=== PATIENT | female | born 1970 | race Caucasian/White ===

== ENCOUNTER 2017-11-20 09:06 | Emergency (ER) | payer MEDICAID, OTHER ==
[~2017-11-20] VITALS: Ht 167.6 cm; Wt 69.1 kg
[2017-11-20] MEDS ORDERED: normal saline 1000ML IV soln IVB ONE (09:15)
[2017-11-20 09:39] LABS: BASOPHILS # (AUTO) 0.1 X10'3 (0-0.2); BASOPHILS % (AUTO) 1.1 % (0-1); EOSINOPHILS # (AUTO) 0.1 X10'3 (0-0.9); EOSINOPHILS % (AUTO) 1.8 % (0-6); HEMATOCRIT 48.6 % (35.0-45.0); HEMOGLOBIN 16.9 g/dl (12.0-16.0); LYMPHOCYTES # (AUTO) 1.8 X10'3 (1.1-4.8); LYMPHOCYTES % (AUTO) 26.1 % (21-51); MEAN CORPUSCULAR HEMOGLOBIN 33.7 PG (27.0-31.0); MEAN CORPUSCULAR HGB CONC 34.7 % (33.0-36.5); MEAN CORPUSCULAR VOLUME 97.3 FL (78-98); MEAN PLATELET VOLUME 7.7 FL (7.4-10.4); MONOCYTES # (AUTO) 0.4 X10'3 (0-0.9); MONOCYTES % (AUTO) 5.7 % (2-12); NEUTROPHILS # (AUTO) 4.5 X10'3 (1.8-7.7); NEUTROPHILS % (AUTO) 65.3 % (42-75); PLATELET COUNT 312 X10'3 (140-440); RED CELL DISTRIBUTION WIDTH 12.9 % (11.5-14.5); WHITE BLOOD COUNT 6.9 X10'3 (4.5-11.0)
[2017-11-20 09:42] LABS: URINE HCG NEGATIVE (NEG)
[2017-11-20 09:43] LABS: CLARITY,URINE CLEAR (Clear); COLOR,URINE YELLOW (Yellow); GLUCOSE, URINE NEGATIVE (Neg); KETONES,URINE NEGATIVE (Neg); LEUKOCYTE ESTERASE ,URINE NEGATIVE (Neg); NITRITES, URINE NEGATIVE (Neg); OCCULT BLOOD,URINE TRACE-INTACT (Neg); PH,URINE 6.5 (4.8-8.0); PROTEIN,URINE NEGATIVE (Neg); UA COLLECTION TYPE CLN CATCH MIDSTREAM; UROBILINOGEN,URINE 0.2 E.U/dL (0.2-1.0)
[2017-11-20 09:48] LABS: BACTERIA,URINE FEW /HPF (Neg); MUCUS STRANDS FEW /LPF (Neg); SQUAMOUS EPITHELIAL CELL,UR MODERATE /LPF (FEW); TRANSITIONAL EPI CELLS,URINE FEW /HPF; WBC,URINE 0-4 /HPF (0-4)
[2017-11-20 09:54] LABS: ALANINE AMINOTRANSFERASE 43 U/L (12-78); ALBUMIN 4.2 G/DL (3.4-5.0); ALBUMIN/GLOBULIN RATIO 1.2 (1.1-1.5); ALKALINE PHOSPHATASE 41 IU/L (46-116); ANION GAP 9 (8-16); ASPARTATE AMINO TRANSFERASE 22 U/L (10-37); BILIRUBIN,TOTAL 1.4 MG/DL (0.1-1.0); BLOOD UREA NITROGEN 17 MG/DL (7-18); CALCIUM 9.2 MG/DL (8.5-10.1); CHLORIDE 104 MMOL/L (99-107); CREATININE 1.13 MG/DL (0.40-0.90); GLUCOSE 105 MG/DL (70-104); POTASSIUM 4.2 MMOL/L (3.5-5.1); SODIUM 140 MMOL/L (135-145); TOTAL CARBON DIOXIDE 27.5 MMOL/L (24-32); TOTAL PROTEIN 7.8 G/DL (6.4-8.2); eGFR 52 ML/MIN
[2017-11-20] MEDS ORDERED: FLO0.4C PO (10:50)
[2017-11-20 11:25] VITALS: BP 120/67
== END 2017-11-20 11:27 | disposition home or self-care (01) ==
LOC: ER 09:07
DX: R33.9 Retention of urine, unspecified (principal)
CPT/HCPCS: 36415; 71045; 74176; 80053; 81001; 81025; 83880; 84484; 85025; 93005; 99285; J7030

== ENCOUNTER 2018-10-01 11:36 | Emergency (ER) | payer BC, MEDICAID ==
[~2018-10-01] VITALS: Ht 170.2 cm; Wt 68.6 kg
[2018-10-01 13:13] LABS: CLARITY,URINE CLEAR (Clear); COLOR,URINE YELLOW (Yellow); GLUCOSE, URINE NEGATIVE (Neg); KETONES,URINE NEGATIVE (Neg); LEUKOCYTE ESTERASE ,URINE NEGATIVE (Neg); NITRITES, URINE NEGATIVE (Neg); OCCULT BLOOD,URINE MODERATE (Neg); PROTEIN,URINE NEGATIVE (Neg); UROBILINOGEN,URINE 0.2 E.U/dL (0.2-1.0)
[2018-10-01 13:19] LABS: UA COLLECTION TYPE CLN CATCH MIDSTREAM
[2018-10-01 13:21] LABS: SQUAMOUS EPITHELIAL CELL,UR FEW /LPF (FEW)
[2018-10-01 13:23] LABS: BACTERIA,URINE FEW /HPF (Neg); TRANSITIONAL EPI CELLS,URINE FEW /HPF; WBC,URINE 0-4 /HPF (0-4)
[2018-10-01] MEDS ORDERED: normal saline 1000ML IV soln IVB ONE (13:50)
[2018-10-01] MEDS ORDERED: CefTRIAXone 2gm/D5W 50ml 50 ML IV ONE (13:50)
[2018-10-01] MEDS ORDERED: ketorolac trometh. 30mg/ml inj. IV ONE (13:55)
[2018-10-01 14:20] LABS: BASOPHILS # (AUTO) 0.1 X10'3 (0-0.2); BASOPHILS % (AUTO) 0.8 % (0-1); EOSINOPHILS % (AUTO) 0.2 % (0-6); HEMATOCRIT 43.9 % (35.0-45.0); LYMPHOCYTES % (AUTO) 28.2 % (21-51); MEAN CORPUSCULAR HEMOGLOBIN 32.4 PG (27.0-31.0); MEAN CORPUSCULAR HGB CONC 34.2 g/dL (33.0-36.5); MEAN CORPUSCULAR VOLUME 94.8 FL (78-98); MEAN PLATELET VOLUME 7.6 FL (7.4-10.4); MONOCYTES # (AUTO) 0.4 X10'3 (0-0.9); MONOCYTES % (AUTO) 5.9 % (2-12); NEUTROPHILS # (AUTO) 4.6 X10'3 (1.8-7.7); NEUTROPHILS % (AUTO) 64.9 % (42-75); PLATELET COUNT 349 X10'3 (140-440); RED BLOOD COUNT 4.63 X10'6 (4.20-5.60); RED CELL DISTRIBUTION WIDTH 12.8 % (11.5-14.5); WHITE BLOOD COUNT 7.1 X10'3 (4.5-11.0)
[2018-10-01 14:31] LABS: ALANINE AMINOTRANSFERASE 42 U/L (12-78); ALBUMIN 3.7 G/DL (3.4-5.0); ALBUMIN/GLOBULIN RATIO 0.8 (1.1-1.5); ALKALINE PHOSPHATASE 42 IU/L (46-116); ANION GAP 7 (8-16); ASPARTATE AMINO TRANSFERASE 22 U/L (10-37); BILIRUBIN,TOTAL 0.4 MG/DL (0.1-1.0); BLOOD UREA NITROGEN 18 MG/DL (7-18); BUN/CREATININE RATIO 17.6 (6.6-38.0); CALCIUM 9.7 MG/DL (8.5-10.1); CHLORIDE 105 MMOL/L (99-107); CREATININE 1.02 MG/DL (0.40-0.90); GLUCOSE 98 MG/DL (70-104); POTASSIUM 3.9 MMOL/L (3.5-5.1); SODIUM 141 MMOL/L (135-145); TOTAL CARBON DIOXIDE 29.1 MMOL/L (24-32); TOTAL PROTEIN 8.1 G/DL (6.4-8.2); eGFR 58 ML/MIN
[2018-10-01 16:02] VITALS: BP 122/78
== END 2018-10-01 16:04 | disposition home or self-care (01) ==
LOC: ER 11:37
DX: R10.12 Left upper quadrant pain (principal); R42 Dizziness and giddiness; R50.9 Fever, unspecified; R41.0 Disorientation, unspecified; Z88.2 Allergy status to sulfonamides
CPT/HCPCS: 36415; 74176; 80053; 81001; 84145; 85025; 96365; 96366; 96375; 99284; J0696; J1885; J7030

== ENCOUNTER 2019-12-14 07:23 | Inpatient (IN) | payer BC ==
[~2019-12-14] VITALS: Ht 170.2 cm; Wt 59.1 kg
--- NOTE | 2019-12-14 08:06 | NUR ---
Pt to restroom unassisted for UA. Pt reports increased pain with movement.
[2019-12-14] MEDS ORDERED: morphine 4 MG/ML inj SYRINge IV PRN (08:10)
[2019-12-14] MEDS ORDERED: ketorolac tromethamine 15mg/ml inj. IV ONE (08:10)
[2019-12-14] MEDS ORDERED: normal saline 1000ML IV soln IVB ONE (08:10)
[2019-12-14] MEDS ORDERED: ondansetron/PF 4mg/2ml inj IV ONE (08:10)
[2019-12-14 08:13] LABS: BASOPHILS % (AUTO) 0.3 % (0-1); EOSINOPHILS % (AUTO) 0.3 % (0-6); HEMOGLOBIN 13.9 g/dl (12.0-16.0); LYMPHOCYTES # (AUTO) 1.1 X10'3 (1.1-4.8); MEAN CORPUSCULAR HGB CONC 33.9 g/dL (33.0-36.5); MEAN CORPUSCULAR VOLUME 97.2 FL (78-98); MEAN PLATELET VOLUME 8.2 FL (7.4-10.4); MONOCYTES # (AUTO) 0.6 X10'3 (0-0.9); MONOCYTES % (AUTO) 4.6 % (2-12); NEUTROPHILS # (AUTO) 11.8 X10'3 (1.8-7.7); NEUTROPHILS % (AUTO) 86.8 % (42-75); PLATELET COUNT 264 X10'3 (140-440); RED BLOOD COUNT 4.22 X10'6 (4.20-5.60); RED CELL DISTRIBUTION WIDTH 12.7 % (11.5-14.5); WHITE BLOOD COUNT 13.6 X10'3 (4.5-11.0)
[2019-12-14 08:15] LABS: ALANINE AMINOTRANSFERASE 30 U/L (12-78); ALBUMIN 3.4 G/DL (3.4-5.0); ALBUMIN/GLOBULIN RATIO 1.2 (1.1-1.5); ALKALINE PHOSPHATASE 39 IU/L (46-116); ANION GAP 9 (8-16); ASPARTATE AMINO TRANSFERASE 17 U/L (10-37); BILIRUBIN,TOTAL 1.3 MG/DL (0.1-1.0); BLOOD UREA NITROGEN 11 MG/DL (7-18); BUN/CREATININE RATIO 13.1 (6.6-38.0); CALCIUM 8.4 MG/DL (8.5-10.1); CHLORIDE 105 MMOL/L (99-107); CREATININE 0.84 MG/DL (0.40-0.90); GLUCOSE 126 MG/DL (70-104); POTASSIUM 3.8 MMOL/L (3.5-5.1); SODIUM 139 MMOL/L (135-145); TOTAL CARBON DIOXIDE 24.7 MMOL/L (24-32); TOTAL PROTEIN 6.3 G/DL (6.4-8.2); eGFR 72 ML/MIN
[2019-12-14 08:25] LABS: LIPASE 978 U/L (73-393)
[2019-12-14 08:31] LABS: URINE HCG NEGATIVE (NEG)
[2019-12-14 08:33] LABS: GLUCOSE, URINE NEGATIVE (Neg); KETONES,URINE 40 mg/dl (Neg); LEUKOCYTE ESTERASE ,URINE NEGATIVE (Neg); NITRITES, URINE NEGATIVE (Neg); OCCULT BLOOD,URINE SMALL (Neg); PROTEIN,URINE NEGATIVE (Neg); UROBILINOGEN,URINE 0.2 E.U/dL (0.2-1.0)
[2019-12-14 08:38] LABS: UA COLLECTION TYPE CLN CATCH MIDSTREAM
[2019-12-14 08:39] LABS: CLARITY,URINE SLIGHTLY CLOUDY (Clear); COLOR,URINE DARK YELLOW (Yellow)
[2019-12-14 08:40] LABS: BACTERIA,URINE FEW /HPF (Neg); HYALINE CASTS 0-3 /LPF (NEGATIVE); MUCUS STRANDS MANY /LPF (Neg); SQUAMOUS EPITHELIAL CELL,UR MANY /LPF (FEW); WBC,URINE 0-4 /HPF (0-4)
[2019-12-14] MEDS ORDERED: iohexol 300mg/ml 100ml inj. ONE (09:05)
--- NOTE | 2019-12-14 09:11 | NUR ---
Pt to CT. Reports some decrease in pain.
--- NOTE | 2019-12-14 09:34 | NUR ---
Pt back from CT. Tolerated well.
[2019-12-14] MEDS ORDERED: piperacillin/tazo 3.375gm/50ml 50 ML IV ONE (09:35)
[2019-12-14] MEDS ORDERED: normal saline 1000ML IV soln IV ONE (09:35)
[2019-12-14] MEDS ORDERED: magnesium Cl slow-release 64mg tablet PO PRN (10:45)
[2019-12-14] MEDS ORDERED: acetaminophen 325mg tablet PO PRN ×2 (10:45)
[2019-12-14] MEDS ORDERED: potassium Cl 20 mEq SR tablet PO PRN ×2 (10:45)
[2019-12-14] MEDS ORDERED: HYDROcodone/acetaminophen 5mg/325mg tablet PO PRN (10:45)
[2019-12-14] MEDS ORDERED: morphine 2 MG/ML inj. syringe IV PRN ×2 (10:45)
[2019-12-14] MEDS ORDERED: magnesium 2GM in 50ml NS 50 ML IV PRN (10:45)
[2019-12-14] MEDS ORDERED: bisacodyl 10mg suppository rectal RC PRN (10:45)
[2019-12-14] MEDS ORDERED: diphenhydrAMINE 50 mg/ml inj IV PRN (10:45)
[2019-12-14] MEDS ORDERED: potassium CL 10mEq/100ml bag 100 ML IV PRN (10:45)
[2019-12-14] MEDS ORDERED: magnesium hydroxide 30ml (MOM) UD suspension PO PRN (10:45)
[2019-12-14] MEDS ORDERED: mag hydrox/Alum hydrox/simeth 30ml oral suspension PO PRN (10:45)
[2019-12-14] MEDS ORDERED: magnesium 4gm in 100ml NS 100 ML IV PRN (10:45)
[2019-12-14] MEDS ORDERED: diphenhydrAMINE 25mg capsule PO PRN (10:45)
[2019-12-14] MEDS ORDERED: acetaminophen 650mg rectal suppository RC PRN (10:45)
[2019-12-14] MEDS ORDERED: HYDROcodone/acetaminophen 10/325mg tab PO PRN (10:45)
[2019-12-14] MEDS ORDERED: FLO0.4C PO (11:16)
[2019-12-14] MEDS ORDERED: ASCO-139 PO (11:16)
[2019-12-14 11:23] LABS: HEMOGLOBIN A1C 4.9 % (4.5-6.2)
--- NOTE | 2019-12-14 11:26 | NUR ---
Patient in room . I have received report from Dino RICHARDSON and had the opportunity to ask questions and assume patient care.
--- NOTE | 2019-12-14 11:40 | NUR ---
Patient arrived to the unit.
[2019-12-14 11:44] VITALS: BP 93/44
[2019-12-14] MEDS ORDERED: SERT50TA10 PO (11:46)
[2019-12-14] MEDS: dextrose 5%-normal saline 1,000 ML IV SCH (11:52)
[2019-12-14] MEDS: metoclopramide 5 mg/ml inj IV PRN (11:58)
--- NOTE | 2019-12-14 13:30 | NUR ---
Patient to MRI by Transport by .
--- NOTE | 2019-12-14 15:24 | NUR ---
PAGER ID: [phone] MESSAGE: [id number] Vitaly. MRCP completed. Patient requesting Toradol instead of MS for pain if possible. Mahi [id number]
[2019-12-14] MEDS: piperacillin/tazo 3.375gm/50ml 50 ML IV SCH (16:10)
[2019-12-14] MEDS: ketorolac trometh. 30mg/ml inj. IV PRN ×2 (16:48→23:09)
--- NOTE | 2019-12-14 16:57 | NUR ---
BM at home Addendum: 12/14/19 at 1658 by Mahi Booth RN Amended: Links added.
[2019-12-14] MEDS: ondansetron/PF 4mg/2ml inj IV PRN ×2 (17:05→23:16)
--- NOTE | 2019-12-14 18:12 | NUR ---
Problems reprioritized. Patient report given, questions answered & plan of care reviewed with Sushma RICHARDSON.
--- NOTE | 2019-12-14 18:24 | NUR ---
Patient in room [facility]. I have received report from EZEKIEL RICHARDSON and had the opportunity to ask questions and assume patient care. Addendum: 12/14/19 at 1824 by Sushma Trent RN Amended: Links added.
[2019-12-14 19:43] LABS: ETHANOL < 0.010 GM/DL (0.0-0.010)
[2019-12-14 20:00] VITALS: BP 104/56
[2019-12-14] MEDS: K and/or MAG REPLACEMENT MC SCH (20:00)
--- NOTE | 2019-12-14 20:00 | NUR ---
pt awake stated pain at a 5 and can handle that does not want morphine for this. likes the toradol. pt a/o pleasant and teaching regarding plan of care.
[2019-12-14] MEDS: lactobacillus rhamnosus 10,000 MMU CELLS/CAPSULE PO SCH (20:07)
[2019-12-14] MEDS: pantoprazole 40 MG vial IV SCH (20:08)
[2019-12-14] MEDS: heparin, porcine 5000 units/ml vial SQ SCH (20:08)
[2019-12-14 20:33] LABS: CLARITY,URINE CLEAR (Clear); COLOR,URINE YELLOW (Yellow); GLUCOSE, URINE NEGATIVE (Neg); KETONES,URINE 15 mg/dl (Neg); LEUKOCYTE ESTERASE ,URINE NEGATIVE (Neg); NITRITES, URINE NEGATIVE (Neg); OCCULT BLOOD,URINE SMALL (Neg); PH,URINE 5.5 (4.8-8.0); PROTEIN,URINE NEGATIVE (Neg); UROBILINOGEN,URINE 0.2 E.U/dL (0.2-1.0)
[2019-12-14 20:36] LABS: UA COLLECTION TYPE VOIDED
[2019-12-14 20:37] LABS: BACTERIA,URINE NONE SEEN /HPF (Neg); RBC,URINE 0-2 /HPF (0-2); SQUAMOUS EPITHELIAL CELL,UR FEW /LPF (FEW); WBC,URINE NONE SEEN /HPF (0-4)
[2019-12-14 20:46] LABS: URINE AMPHETAMINE SCREEN NEGATIVE (Neg); URINE BARBITUATE SCREEN NEGATIVE (Neg); URINE BENZODIAZEPINES SCREEN NEGATIVE (Neg); URINE CANNABINOID SCREEN NEGATIVE (Neg); URINE COCAINE SCREEN NEGATIVE (Neg); URINE METHADONE SCREEN NEGATIVE (Neg); URINE OPIATE SCREEN POSITIVE (Neg); URINE PHENCYCLIDINE SCREEN NEGATIVE (Neg)
--- NOTE | 2019-12-14 23:02 | NUR ---
resting eyes closed without changes at this time.
--- NOTE | 2019-12-14 23:17 | NUR ---
pt awoke with pain 01/07 and c/o nausea medicated with iv toradol & ZOFRAN FOR THIS.
[2019-12-15] VITALS: BP 118/63
--- NOTE | 2019-12-15 00:06 | NUR ---
resting eyes closed without changes.
[2019-12-15] MEDS: piperacillin/tazo 3.375gm/50ml 50 ML IV SCH ×3 (00:18→16:56)
[2019-12-15] MEDS: dextrose 5%-normal saline 1,000 ML IV SCH ×3 (00:19→17:52)
--- NOTE | 2019-12-15 02:00 | NUR ---
resting eyes closed appears comfortable.
--- NOTE | 2019-12-15 03:57 | NUR ---
pt up ambulating in the coulter had night sweats and hospital gown and pillow cases changed for her.
--- NOTE | 2019-12-15 05:06 | NUR ---
pt resting eyes closed without changes.
[2019-12-15 05:53] LABS: BASOPHILS # (AUTO) 0.1 X10'3 (0-0.2); BASOPHILS % (AUTO) 0.5 % (0-1); EOSINOPHILS # (AUTO) 0.1 X10'3 (0-0.9); EOSINOPHILS % (AUTO) 0.7 % (0-6); HEMATOCRIT 34.8 % (35.0-45.0); HEMOGLOBIN 11.8 g/dl (12.0-16.0); LYMPHOCYTES # (AUTO) 1.7 X10'3 (1.1-4.8); LYMPHOCYTES % (AUTO) 17.9 % (21-51); MEAN CORPUSCULAR HEMOGLOBIN 33.2 PG (27.0-31.0); MEAN CORPUSCULAR HGB CONC 33.9 g/dL (33.0-36.5); MEAN CORPUSCULAR VOLUME 97.9 FL (78-98); MEAN PLATELET VOLUME 8.7 FL (7.4-10.4); MONOCYTES # (AUTO) 0.6 X10'3 (0-0.9); MONOCYTES % (AUTO) 6.5 % (2-12); NEUTROPHILS # (AUTO) 7.2 X10'3 (1.8-7.7); NEUTROPHILS % (AUTO) 74.4 % (42-75); PLATELET COUNT 216 X10'3 (140-440); RED BLOOD COUNT 3.56 X10'6 (4.20-5.60); RED CELL DISTRIBUTION WIDTH 12.4 % (11.5-14.5); WHITE BLOOD COUNT 9.7 X10'3 (4.5-11.0)
[2019-12-15 06:05] LABS: ALANINE AMINOTRANSFERASE 20 U/L (12-78); ALBUMIN 2.6 G/DL (3.4-5.0); ALKALINE PHOSPHATASE 30 IU/L (46-116); ANION GAP 8 (8-16); ASPARTATE AMINO TRANSFERASE 16 U/L (10-37); BILIRUBIN,TOTAL 2.2 MG/DL (0.1-1.0); BLOOD UREA NITROGEN 6 MG/DL (7-18); BUN/CREATININE RATIO 7.1 (6.6-38.0); CALCIUM 7.5 MG/DL (8.5-10.1); CHLORIDE 109 MMOL/L (99-107); CHOL/HDL RATIO 1.5 (0.00-4.99); CHOLESTEROL 92 MG/DL (0-200); CREATININE 0.85 MG/DL (0.40-0.90); GLUCOSE 123 MG/DL (70-104); HDL CHOLESTEROL 61 MG/DL (35-60); LDL CHOLESTEROL 28 MG/DL (50-100); LIPASE 325 U/L (73-393); MAGNESIUM 1.5 MG/DL (1.5-2.4); PHOSPHORUS 2.3 MG/DL (2.3-4.5); POTASSIUM 3.2 MMOL/L (3.5-5.1); SODIUM 142 MMOL/L (135-145); TOTAL CARBON DIOXIDE 24.9 MMOL/L (24-32); TOTAL PROTEIN 5.3 G/DL (6.4-8.2); TRIGLYCERIDES 53 MG/DL (20-135); eGFR 71 ML/MIN
--- NOTE | 2019-12-15 06:20 | NUR ---
Problems reprioritized. Patient report given, questions answered & plan of care reviewed with Glenys Meier. Addendum: 12/15/19 at 0621 by Sushma Trent RN Amended: Links added.
--- NOTE | 2019-12-15 06:42 | NUR ---
Patient in room [facility]. I have received report from DEBRA Ordaz and had the opportunity to ask questions and assume patient care.
[2019-12-15 07:00] VITALS: BP 113/69
[2019-12-15] MEDS: ketorolac trometh. 30mg/ml inj. IV PRN ×3 (07:09→19:41)
[2019-12-15] MEDS: ondansetron/PF 4mg/2ml inj IV PRN (07:16)
[2019-12-15] MEDS: potassium CL 10mEq/100ml bag 100 ML IV PRN ×4 (07:17→13:32)
[2019-12-15] MEDS: pantoprazole 40 MG vial IV SCH (08:04)
[2019-12-15] MEDS: K and/or MAG REPLACEMENT MC SCH ×2 (08:15→19:42)
[2019-12-15] MEDS: lactobacillus rhamnosus 10,000 MMU CELLS/CAPSULE PO SCH ×2 (08:34→19:41)
[2019-12-15] MEDS: heparin, porcine 5000 units/ml vial SQ SCH ×2 (08:38→19:42)
[2019-12-15 11:00] VITALS: BP 106/66
--- NOTE | 2019-12-15 18:12 | NUR ---
Problems reprioritized. Patient report given, questions answered & plan of care reviewed with DEBRA Adkins.
--- NOTE | 2019-12-15 18:38 | NUR ---
Received report from primary care nurse Glenys RICHARDSON. Assumed care. Patient is awake and alert on room air in no apparent distress. Call light and items of frequent use within reach. Will continue to monitor for changes.
[2019-12-15 19:00] VITALS: BP 106/65
[2019-12-15] MEDS: diatr meglu/diatrizoate 30ml oral sol.-(3 dose) bottle PO SCH ×2 (20:48→22:14)
[2019-12-16] VITALS: BP 98/62
[2019-12-16] MEDS: piperacillin/tazo 3.375gm/50ml 50 ML IV SCH ×3 (00:27→15:26)
[2019-12-16] MEDS: ondansetron/PF 4mg/2ml inj IV PRN ×3 (01:25→15:23)
[2019-12-16] MEDS: ketorolac trometh. 30mg/ml inj. IV PRN (01:25)
[2019-12-16 05:15] LABS: BASOPHILS % (AUTO) 0.7 % (0-1); EOSINOPHILS # (AUTO) 0.2 X10'3 (0-0.9); EOSINOPHILS % (AUTO) 2.3 % (0-6); HEMATOCRIT 30.4 % (35.0-45.0); HEMOGLOBIN 10.4 g/dl (12.0-16.0); LYMPHOCYTES # (AUTO) 1.3 X10'3 (1.1-4.8); LYMPHOCYTES % (AUTO) 17.7 % (21-51); MEAN CORPUSCULAR HEMOGLOBIN 33.3 PG (27.0-31.0); MEAN CORPUSCULAR HGB CONC 34.3 g/dL (33.0-36.5); MEAN CORPUSCULAR VOLUME 97.2 FL (78-98); MEAN PLATELET VOLUME 8.9 FL (7.4-10.4); MONOCYTES # (AUTO) 0.5 X10'3 (0-0.9); MONOCYTES % (AUTO) 6.9 % (2-12); NEUTROPHILS # (AUTO) 5.2 X10'3 (1.8-7.7); NEUTROPHILS % (AUTO) 72.4 % (42-75); PLATELET COUNT 179 X10'3 (140-440); RED BLOOD COUNT 3.13 X10'6 (4.20-5.60); RED CELL DISTRIBUTION WIDTH 12.5 % (11.5-14.5); WHITE BLOOD COUNT 7.2 X10'3 (4.5-11.0)
[2019-12-16 05:34] LABS: ALANINE AMINOTRANSFERASE 19 U/L (12-78); ALBUMIN 2.4 G/DL (3.4-5.0); ALBUMIN/GLOBULIN RATIO 0.8 (1.1-1.5); ALKALINE PHOSPHATASE 31 IU/L (46-116); ANION GAP 6 (8-16); ASPARTATE AMINO TRANSFERASE 15 U/L (10-37); BILIRUBIN,TOTAL 1.4 MG/DL (0.1-1.0); BLOOD UREA NITROGEN 6 MG/DL (7-18); BUN/CREATININE RATIO 7.1 (6.6-38.0); CALCIUM 7.9 MG/DL (8.5-10.1); CHLORIDE 111 MMOL/L (99-107); CREATININE 0.84 MG/DL (0.40-0.90); GLUCOSE 113 MG/DL (70-104); LIPASE 89 U/L (73-393); MAGNESIUM 1.8 MG/DL (1.5-2.4); PHOSPHORUS 2.7 MG/DL (2.3-4.5); POTASSIUM 3.4 MMOL/L (3.5-5.1); SODIUM 143 MMOL/L (135-145); TOTAL PROTEIN 5.3 G/DL (6.4-8.2); eGFR 72 ML/MIN
--- NOTE | 2019-12-16 06:31 | NUR ---
Reported off to Sridevi RICHARDSON. Patient is awake and alert on room air. In no apparent distress. Call light and items of frequent use within reach.
--- NOTE | 2019-12-16 06:40 | NUR ---
Patient in room [facility]. I have received report from DEBRA Adkins and had the opportunity to ask questions and assume patient care.
[2019-12-16] MEDS: diatr meglu/diatrizoate 30ml oral sol.-(3 dose) bottle PO SCH ×3 (07:00→10:05)
[2019-12-16] MEDS: pantoprazole 40mg Tablet.DR PO SCH (07:18)
[2019-12-16] MEDS: lactobacillus rhamnosus 10,000 MMU CELLS/CAPSULE PO SCH ×2 (07:18→20:02)
[2019-12-16] MEDS: heparin, porcine 5000 units/ml vial SQ SCH ×2 (07:28→20:03)
[2019-12-16] MEDS: dextrose 5%-normal saline 1,000 ML IV SCH (07:36)
[2019-12-16 08:00] VITALS: BP 98/63
[2019-12-16] MEDS: K and/or MAG REPLACEMENT MC SCH ×2 (08:00→20:00)
[2019-12-16] MEDS ORDERED: iohexol 300mg/ml 100ml inj. ONE (10:03)
[2019-12-16] MEDS ORDERED: potassium Cl 20 mEq SR tablet PO STA (11:06)
[2019-12-16] MEDS ORDERED: LIPA1CAP18 PO (11:49)
[2019-12-16] MEDS ORDERED: AMOX-419 PO (11:49)
[2019-12-16] MEDS ORDERED: LACT1CAP26 PO (11:49)
[2019-12-16] MEDS ORDERED: HYDR-4383 PO (11:49)
[2019-12-16] MEDS ORDERED: PANT40TA4 PO (11:49)
[2019-12-16] MEDS: metoclopramide 5 mg/ml inj IV PRN (12:27)
[2019-12-16 12:57] VITALS: BP 104/59
--- NOTE | 2019-12-16 13:43 | NUR ---
PAGER ID: [phone] MESSAGE: Kelle-[facility]urg [id number] Re: [place] patient very nauseated Reglan given please call patient was to be discharged Addendum: 12/16/19 at 1406 by Kelle Rush RN Dr Watts aware patient is feeling nauseated and is afraid to go home tonight due to possibly having to return to ER because she is unable to keep any food or liquids down. Per Dr Watts ok for patient to stay until tomorrow .
--- NOTE | 2019-12-16 17:56 | NUR ---
Zosyn IV administered over 1hr. Pharmacy and Pt's MD informed.
--- NOTE | 2019-12-16 18:45 | NUR ---
Problems reprioritized. Patient report given, questions answered & plan of care reviewed with DEBRA Rowe. Pt states feeling less nauseated.
--- NOTE | 2019-12-16 18:52 | NUR ---
Patient in room [facility]. I have received report from Sridevi RICHARDSON and had the opportunity to ask questions and assume patient care.
[2019-12-16 20:00] VITALS: BP 100/52
[2019-12-17] VITALS: BP 99/58
[2019-12-17] MEDS: ketorolac trometh. 30mg/ml inj. IV PRN (00:21)
[2019-12-17] MEDS: ondansetron/PF 4mg/2ml inj IV PRN (00:28)
[2019-12-17] MEDS: dextrose 5%-normal saline 1,000 ML IV SCH (02:11)
[2019-12-17 05:07] LABS: BASOPHILS % (AUTO) 0.9 % (0-1); EOSINOPHILS # (AUTO) 0.1 X10'3 (0-0.9); EOSINOPHILS % (AUTO) 3.4 % (0-6); HEMATOCRIT 28.9 % (35.0-45.0); HEMOGLOBIN 9.8 g/dl (12.0-16.0); LYMPHOCYTES # (AUTO) 1.4 X10'3 (1.1-4.8); LYMPHOCYTES % (AUTO) 35.9 % (21-51); MEAN CORPUSCULAR HEMOGLOBIN 33.4 PG (27.0-31.0); MEAN CORPUSCULAR HGB CONC 33.8 g/dL (33.0-36.5); MEAN CORPUSCULAR VOLUME 98.8 FL (78-98); MEAN PLATELET VOLUME 8.9 FL (7.4-10.4); MONOCYTES # (AUTO) 0.3 X10'3 (0-0.9); NEUTROPHILS % (AUTO) 51.8 % (42-75); PLATELET COUNT 176 X10'3 (140-440); RED BLOOD COUNT 2.92 X10'6 (4.20-5.60); RED CELL DISTRIBUTION WIDTH 12.4 % (11.5-14.5); WHITE BLOOD COUNT 3.8 X10'3 (4.5-11.0)
[2019-12-17 05:18] LABS: ALANINE AMINOTRANSFERASE 22 U/L (12-78); ALBUMIN 2.3 G/DL (3.4-5.0); ALBUMIN/GLOBULIN RATIO 0.8 (1.1-1.5); ALKALINE PHOSPHATASE 30 IU/L (46-116); ANION GAP 7 (8-16); ASPARTATE AMINO TRANSFERASE 30 U/L (10-37); BLOOD UREA NITROGEN 5 MG/DL (7-18); BUN/CREATININE RATIO 5.4 (6.6-38.0); CALCIUM 7.5 MG/DL (8.5-10.1); CHLORIDE 112 MMOL/L (99-107); CREATININE 0.93 MG/DL (0.40-0.90); GLUCOSE 267 MG/DL (70-104); LIPASE 77 U/L (73-393); MAGNESIUM 1.6 MG/DL (1.5-2.4); PHOSPHORUS 2.7 MG/DL (2.3-4.5); POTASSIUM 3.5 MMOL/L (3.5-5.1); SODIUM 144 MMOL/L (135-145); TOTAL CARBON DIOXIDE 24.8 MMOL/L (24-32); TOTAL PROTEIN 5.2 G/DL (6.4-8.2); eGFR 64 ML/MIN
--- NOTE | 2019-12-17 06:28 | NUR ---
Patient in room [facility]. I have received report from DEBRA Rowe and had the opportunity to ask questions and assume patient care.
--- NOTE | 2019-12-17 06:33 | NUR ---
Problems reprioritized. Patient report given, questions answered & plan of care reviewed with Sridevi RICHARDSON.
[2019-12-17] MEDS: lactobacillus rhamnosus 10,000 MMU CELLS/CAPSULE PO SCH (07:18)
[2019-12-17] MEDS: pantoprazole 40mg Tablet.DR PO SCH (07:18)
[2019-12-17] MEDS: piperacillin/tazo 3.375gm/50ml 50 ML IV SCH ×2 (07:19)
[2019-12-17] MEDS: heparin, porcine 5000 units/ml vial SQ SCH (07:20)
[2019-12-17 08:00] VITALS: BP 97/59
[2019-12-17] MEDS: K and/or MAG REPLACEMENT MC SCH (08:00)
--- NOTE | 2019-12-17 11:49 | NUR ---
Pt D/C'd home per Dr Watts in stable condition. Pt tolerating diet well, no c/o pain or nausea. discharge and medication instruction given to pt. IV removed with cannula intact. Pt was escorted to main lobby on w/c, left the hospital via private vehicle accompanied by her mother.
[2019-12-17 11:52] VITALS: BP 111/74
== END 2019-12-17 11:40 | disposition home or self-care (01) | DRG 439 ==
LOC: ER 07:24 → ED HOLD 10:44 → SUR 3N 11:36
PROVIDERS: ADMIT Family Medicine; ATTEND Family Medicine
PROC: BW211ZZ Computerized Tomography (CT Scan) of Abdomen and Pelvis using Low Osmolar Contrast (ICD-10-PCS; principal; 2019-12-14)
PROC: BW211ZZ Computerized Tomography (CT Scan) of Abdomen and Pelvis using Low Osmolar Contrast (ICD-10-PCS; 2019-12-16)
DX: K85.20 Alcohol induced acute pancreatitis without necrosis or infection (principal); J81.1 Chronic pulmonary edema; R18.8 Other ascites; J90 Pleural effusion, not elsewhere classified; F41.8 Other specified anxiety disorders; E87.6 Hypokalemia; N28.1 Cyst of kidney, acquired; F10.20 Alcohol dependence, uncomplicated; J45.909 Unspecified asthma, uncomplicated; K21.9 Gastro-esophageal reflux disease without esophagitis; K29.70 Gastritis, unspecified, without bleeding; Z80.3 Family history of malignant neoplasm of breast; Z83.3 Family history of diabetes mellitus; Z87.440 Personal history of urinary (tract) infections; Z87.891 Personal history of nicotine dependence; Z98.51 Tubal ligation status; Z71.41 Alcohol abuse counseling and surveillance of alcoholic
CPT/HCPCS: 36415; 71045; 74177; 74181; 76700; 80053; 80061; 80305; 80320; 81001; 81025; 83036; 83605; 83690; 83735; 84100; 84145; 84443; 84484; 85025; 87040; 87081; 93005; 96365; 96375; 99285; C9113; G0378; J1644; J1885; J2270; J2405; J2543; J2765; J3480; J7030; J7042; Q0163; Q9963; Q9967